=== PATIENT | female | born 1990 | race Two or more races ===

== ENCOUNTER 2022-11-19 15:08 | Emergency (ER) | payer SELFPAY ==
[2022-11-19] MEDS ORDERED: diphenhydrAMINE 50 MG/ML SDV IVPUSH ONE (15:25)
[2022-11-19] MEDS ORDERED: Albuterol/Ipratropium 3.0-0.5 MG/3 ML Neb Soln NEB ONE (15:25)
[2022-11-19] MEDS ORDERED: methylPREDNISolone Sodium Succinate 125 MG/2 ML SDV IVPUSH ONE (15:25)
[2022-11-19] MEDS ORDERED: Lactated Ringers 1,000 ML IV ONE (16:48)
[2022-11-19] MEDS ORDERED: Sodium Chloride 0.9% 1,000 ML IV ONE (16:54)
== END 2022-11-19 17:54 | disposition home or self-care (01) ==
LOC: MW.ED 15:08
DX: T78.40XA Allergy, unspecified, initial encounter (principal); Z91.048 Other nonmedicinal substance allergy status; Z91.013 Allergy to seafood
CPT/HCPCS: 94640; 96361; 96374; 96375; 99283; J1200; J2930; J7030; J7620-GY